=== PATIENT | female | born 1945 | race Caucasian/White ===

== ENCOUNTER 2017-08-31 07:30 | Day surgery (SDC) | payer OTHER ==
[~2017-08-31] VITALS: Ht 154.9 cm; Wt 92.2 kg
[2017-08-31] MEDS ORDERED: LACTATED RINGERS 1,000 ML IV SCH (08:07)
[2017-08-31 08:11] VITALS: BP 142/84
[2017-08-31] MEDS ORDERED: LEVOTHYROXINE PO (08:11)
[2017-08-31] MEDS ORDERED: POLY17PO5 PO (08:35)
[2017-08-31] MEDS ORDERED: BETHAMETHASONE TP (08:35)
[2017-08-31] MEDS ORDERED: CLOB100F13 TP (08:35)
[2017-08-31] MEDS ORDERED: LEVO50TA5 PO (08:35)
[2017-08-31] MEDS ORDERED: TRAZ100T15 PO (08:35)
[2017-08-31] MEDS ORDERED: PANT40TA5 PO (08:35)
[2017-08-31] MEDS ORDERED: MIDAZOLAM 1 MG/ML, 2ML ONE (09:40)
[2017-08-31] MEDS ORDERED: FENTANYL PF 100 MCG/2ML ONE (09:40)
[2017-08-31] MEDS ORDERED: KETAMINE 10 MG/ML, 20ML ONE (09:57)
[2017-08-31] MEDS ORDERED: ONDANSETRON 2MG/ML, 2ML ONE (09:58)
[2017-08-31] MEDS ORDERED: SUCCINYLCHOLINE 20 MG/ML, 10ML ONE (09:58)
[2017-08-31] MEDS ORDERED: NEOSTIGMINE 1 MG/ML, 10ML ONE (09:58)
[2017-08-31] MEDS ORDERED: DEXAMETHASONE 4 MG/ML, 1ML ONE (09:58)
[2017-08-31] MEDS ORDERED: PROPOFOL 10 MG/ML, 20ML ONE (09:58)
[2017-08-31] MEDS ORDERED: KETOROLAC 30 MG/1 ML ONE (10:51)
[2017-08-31] MEDS ORDERED: morphine SULFATE 10 MG/ML, 1ML IV PRN (11:00)
[2017-08-31] MEDS ORDERED: hydrALAzine 20 MG/ML, 1ML IV PRN (11:00)
[2017-08-31] MEDS ORDERED: FENTANYL PF 100 MCG/2ML IV PRN (11:00)
[2017-08-31] MEDS ORDERED: LABETALOL 5MG/ML, 20ML IV PRN (11:00)
[2017-08-31] MEDS ORDERED: KETOROLAC 30 MG/1 ML IVPush ONE (11:00)
[2017-08-31] MEDS ORDERED: OXYcodone 5 MG/5 ML ORAL.SOL UDC PO PRN (11:00)
[2017-08-31] MEDS ORDERED: PROMETHAZINE 12.5 MG SUPP PR PRN (11:00)
[2017-08-31] MEDS ORDERED: ONDANSETRON 2MG/ML, 2ML IVPush PRN (11:00)
[2017-08-31] MEDS ORDERED: MEPERIDINE/PF 25MG/0.5ML IVPush PRN (11:00)
[2017-08-31] MEDS ORDERED: ACETAMINOPHEN 325 MG TABLET PO PRN (11:00)
== END 2017-08-31 12:50 ==
LOC: OUT 07:30
PROVIDERS: ATTEND Internal Medicine
DX: D12.3 Benign neoplasm of transverse colon (principal); K63.5 Polyp of colon; D12.8 Benign neoplasm of rectum; K29.80 Duodenitis without bleeding; K25.9 Gastric ulcer, unspecified as acute or chronic, without hemorrhage or perforation; K57.30 Diverticulosis of large intestine without perforation or abscess without bleeding; K55.20 Angiodysplasia of colon without hemorrhage; K29.50 Unspecified chronic gastritis without bleeding; K21.9 Gastro-esophageal reflux disease without esophagitis; I10 Essential (primary) hypertension
CPT/HCPCS: 43239; 45380; 88305; 93005; J0330; J1100; J1885; J2250; J2405; J2704; J2710; J3010